=== PATIENT | female | born 1965 | race Caucasian/White ===

== ENCOUNTER → 2024-07-15 11:59 | Outpatient (ROUT) | payer BC, SELFPAY | PROVIDERS: PCP Specialist; Visit Provider Dermatology | DX: Z48.817 Encounter for surgical aftercare following surgery on the skin and subcutaneous tissue (principal) | CPT/HCPCS: 87070; 87075; 87205 ==

== ENCOUNTER → 2025-09-07 13:11 | Outpatient (CLI) | payer BC, SELFPAY ==
--- NOTE | 2025-09-07 13:13 | DI.RAD.S_ITS ---
PROCEDURE: XR FOOT RT MIN 3V INDICATIONS: Right foot 4th digit pain TECHNIQUE: 3 views of the foot were acquired. COMPARISON: None. FINDINGS: Bones: Acute non-displaced oblique fracture of the 4th toe proximal phalanx. No suspicious bony lesions. Soft tissues: No tibiotalar joint effusion. Achilles tendon appears normal. IMPRESSION: Acute, nondisplaced oblique fracture of the 4th toe proximal phalanx. Dictated by: Jose Alejandro Mejia M.D. on 09/07/2025 at 13:13 Approved by: Jose Alejandro Mejia M.D. on 09/07/2025 at 13:14
== END ==
LOC: RAD 13:13
PROVIDERS: Referring Provider Registered Nurse; Visit Provider Registered Nurse
DX: S92.514A Nondisplaced fracture of proximal phalanx of right lesser toe(s), initial encounter for closed fracture (principal); M79.671 Pain in right foot
CPT/HCPCS: 73630